=== PATIENT | male | born 1970 | race Caucasian/White ===

== ENCOUNTER 2023-08-05 14:41 | Outpatient (CLI) | payer BC, SELFPAY ==
[2023-08-05 15:31] LABS: Influenza A QL RT-PCR Negative (Negative); Influenza B QL RT-PCR Negative (Negative); SARS-CoV-2 RNA PCR Positive (Negative)
== END 2023-08-05 14:42 | disposition home or self-care (01) ==
LOC: ANHLAB 14:42
PROVIDERS: PCP Family Medicine; Visit Provider Physician Assistant Medical
DX: U07.1 COVID-19 (principal)
CPT/HCPCS: 87636

== ENCOUNTER 2023-09-08 14:54 | Outpatient (CLI) | payer BC, SELFPAY ==
--- NOTE | ~2023-09-08 | US_ITS ---
EXAMINATION: US soft tissue UE RT DATE: 09/08/2023 15:28 INDICATION: Abdominal mass at the right upper extremity TECHNIQUE: Multiple grayscale and Doppler ultrasound images of the region of concern at the anterior mid right upper arm were obtained. COMPARISON: None FINDINGS: There is a 3.2 x 1.4 x 2.2 cm ovoid intramuscular mass at the region of concern. The masses hypoechoi c to the surrounding musculature, relatively isoechoic but with more coarsened echotexture within the superficial subcutaneous fat. IMPRESSION: 1. Nonspecific 3.2 x 1.4 x 2.2 cm intramuscular mass at the region of concern consistent with neoplas m either benign such as intramuscular lipoma, schwannoma or peripheral nerve sheath tumor or malignan t. Recommend further evaluation with pre and postcontrast MRI. Reviewed, dictated and finalized at location A. [employer] IMPRESSION: 1. Nonspecific 3.2 x 1.4 x 2.2 cm intramuscular mass at the region of concern c onsistent with neoplasm either benign such as intramuscular lipoma, schwannoma or peripheral nerve sheath tumor or malignant. Recommend further evaluation wit h pre and postcontrast MRI.
== END 2023-09-08 14:55 | disposition home or self-care (01) ==
LOC: ANHIMG 14:59
PROVIDERS: PCP Physician Assistant Medical; Visit Provider Physician Assistant Medical
DX: R22.31 Localized swelling, mass and lump, right upper limb (principal)
CPT/HCPCS: 76882

== ENCOUNTER 2024-04-12 14:38 | Outpatient (CLI) | payer BC, SELFPAY ==
--- NOTE | ~2024-04-12 | XR_ITS ---
EXAM: XR shoulder LT min 2V DATE: 04/12/2024 14:53 HISTORY: M25.512 - Pain in left shoulder, NKI . COMPARISON: None available. FINDINGS: Normal mineralization. No fracture or dislocation. No lytic or blastic lesion. Mild degene rative changes at the AC joint and glenohumeral joint. Superior humeral head migration. Inferior acro mial osteophytosis and acromial tip enthesopathy which could contribute to osseous outlet compromise. No erosion or periosteal change. Soft tissues within normal limits. 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 Evidence of rotator cuff patholog y including osseous outlet compromise. Reviewed, dictated and finalized at location K. 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 Evidence of rotator cuff pathology including osseous outlet compromise.
--- NOTE | ~2024-04-12 | XR_ITS ---
EXAM: XR shoulder RT min 2V DATE: 04/12/2024 14:53 HISTORY: RT SHOULDER PAIN. HX ROTATOR CUFF REPAIR . COMPARISON: 09/29/2018, images only. FINDINGS: Normal mineralization. No fracture or dislocation. No lytic or blastic lesion. Mild degene rative change at the AC joint and glenohumeral joint. Superior migration of the humeral head. No eros ion or periosteal change. Soft tissues within normal limits. IMPRESSION: Mild polyarticular right shoulder osteoarthritis. Evidence of rotator cuff pathology. Reviewed, dictated and finalized at location K. IMPRESSION: Mild polyarticular right shoulder osteoarthritis. Evidence of rotat or cuff pathology.
== END 2024-04-12 14:39 | disposition home or self-care (01) ==
PROVIDERS: PCP Family Medicine; Visit Provider Physician Assistant
DX: M19.011 Primary osteoarthritis, right shoulder (principal); M19.012 Primary osteoarthritis, left shoulder
CPT/HCPCS: 73030

== ENCOUNTER 2024-04-15 00:35 | Day surgery (SDC) | payer BC, SELFPAY ==
--- NOTE | 2024-04-12 16:24 | SUR.PREOP ---
Report to the Outpatient Waiting Room, entrance under the green pavilion located off [facility], at time 1130 on date 04/15/24. Planned Procedure Time: 1330. Time changes happen often and if your time is changed the preop area will call you the afternoon before. - You and your visitor will be asked to self-screen and do not enter if you have any COVID symptoms. - A mask is optional within the hospital at this time. Patients may have clear liquids (water, carbonated beverages, clear teas, apple juice) until 3 hours prior to surgery with a maximum of 20 ounces. - NO CLEAR LIQUIDS AFTER 1030 - No food from midnight until time of surgery - Infants may have breast milk until 4 hours before surgery, infant formula 6 hours prior to surgery. - Children will be allowed to drink immediately following surgery. If applicable, please bring a bottle or sippy cup to assist with drinking. Juice, water, soda, and popsicles are readily available. For infants on formula, please bring formula the day of surgery. Pacifiers are allowed. Take the following medications with a SIP of water the morning of surgery: N/A DO NOT STOP ANY OF YOUR OTHER PRESCRIPTION MEDICATIONS PRIOR TO SURGERY ?EXCEPT THE FOLLOWING Medications to discontinue per physician N/A Date to take last dose Please no make-up, nail slovenian, hairspray, perfume, deodorant, or body powder the day of surgery. No jewelry (including any body piercings) or valuables the day of surgery, leave them at home. Please take a shower or bath the night before, or the morning of, surgery with an antibacterial soap. Wear comfortable, loose fitting clothing. Children are encouraged to wear pajamas. - Jewelry must be removed prior to entering the operating room. Rings and piercings that are not removed may be cut off. - The hospital will not accept responsibility for valuables. - Please leave all valuables, including medications, at home the day of surgery. If you are going home after surgery, a licensed inventory associate and driver must drive you home. - NO public transportation without another adult if you receive anesthesia. - We recommend that an adult stay with you for 24 hours following discharge. - We also recommend that you do not drive, make important decision, drink alcoholic beverages, or take any drugs that were not prescribed by your health care provider for at least 24 hours after your discharge time. For Pediatric surgeries, we recommend two adults accompany the child home. Follow any additional instructions given to you from your surgeon. If you or anyone in your household have experienced Covid symptoms in the past week, please notify your surgeon or the nurse liaison at the phone number below for possible testing. Telephone instructions given to PAULA PRO and asked if any additional questions and then verbalized understanding. Patient advised to call surgeon office or pre surgery nurse liaison [phone] if any additional questions.
[2024-04-12 16:32] VITALS: BMI 30.4
[2024-04-15] VITALS (8 sets, daily range): BP systolic 103–152; BP diastolic 70–99; PULSE 67–74; RESP 12–20; TEMP 36.4–36.6; O2SAT 97–100
--- NOTE | 2024-04-15 12:21 | WPDHPUPDATE1 ---
History and Physical Update Update Date/Time: 04/15/24 12:21 History and Physical has been reviewed, including an updated exam of the patient. There are NO changes in the patient's condition. Risks, benefits, and alternatives have been discussed and questions answered. Patient agrees to proceed with procedure.
--- NOTE | 2024-04-15 12:42 | WPDANESEPPF ---
Anes - Initial Pre Proc Eval Procedure: Operation Date: 04/15/24 13:30 Proposed Procedures p Excision Right Intramuscular Upper Extremity Mass - James Huff DO Date/Time: 04/15/24 12:42 Surgeon: James Huff DO Pre Op Diagnosis: right upper extremity mass Patient Data Age: 53 Gender: M Height: 1.73 m Weight: 91 kg Allergies Allergy/AdvReac Type Severity Reaction Status Date / Time No Known Allergies Allergy Verified 04/12/24 16:14 Home Medications Medication Instructions Recorded Confirmed Type rosuvastatin 10 mg tablet 10 mg PO DAILY #30 tabs 03/09/24 04/12/24 Rx Patient hx anesthesia problems: none Family hx anesthesia problems: none Results Review: All pre-operative results and documents have been reviewed as part of the pre-operative evaluation. [facility] Past Medical History Medical History Allergic rhinitis HLD (hyperlipidemia) HTN (hypertension) Thrombosed hemorrhoids Surgical History Surgical History S/P rotator cuff repair Family History Family History Other Diabetes mellitus Family history of allergic disorder Family history of arthritis Hypertension Social History Social History Smoking packs per day: 1 Smoking cigarettes per day: 20.0 Years smoked: 30 Smoking pack-years: 30.00 Smoking status: Heavy tobacco smoker Second hand tobacco smoke exposure: No Alcohol intake: current Drinks per week: 20 Substance use: never Substance use type: marijuana Do You Feel Safe in your Home?: Yes Lack of Transportation: No Lack of Food: Never True Current Housing: I Have Housing Concerned About Future Housing: No Difficulty Paying Gas/Electric Bills: No Difficulty Paying for Meds: No Currently Unemployed: No Education: High School Diploma/GED Difficulty w/ Childcare or Family Care: No Occupation/Education: occupation Gender identity (if verbalized by the patient): Male Spiritual care concerns: No Anes - Eval Final PreProcedure Day of Procedure 04/15/24 12:42 Patient weight: obese Heart: regular rate and rhythm Lungs: clear to auscultation Airway: Mallampati scale class II Neurological: alert and oriented Last oral intake: >/= 8 hours ASA classification: III Emergent: no Anesthetic plan: proceed Anesthesia type and monitoring: general GIVS and standard monitoring Results Review: All pre-operative results and documents have been reviewed as part of the pre-operative evaluation. Informed Consent: The patient's anesthetic plan and its attendant risks and benefits were discussed with the patient/family/POA. Questions were solicited and answers provided to the satisfaction of the patient/family/POA.
[2024-04-15] MEDS: LACTATED RINGERS 1,000 ML 30 ML IV CONT ×2 (12:51→13:48)
[2024-04-15] MEDS: ceFAZolin 2 GM/D5W 50 ML 2 GM/50 ML BAG IVPB (13:12)
[2024-04-15] MEDS: LIDO 1%/EPINEPHRINE 1:100,000 20 ML VIAL 50 ML INFILTRATE (13:25)
--- NOTE | 2024-04-15 13:55 | P.OP_ITS ---
Procedure Note - Detailed Date of Procedure 04/15/24 Pre-op Diagnosis right upper extremity intramuscular mass Post-op Diagnosis Same Procedure Performed Excision of 4cm right upper extremity intramuscular mass Surgeon James Huff, DO Anesthesia MAC and Local (1% Lidocaine with epinephrine) Indications this is a 53-year-old man who presented with a painful bulge in his right biceps region. He had noticed this for several months but it was becoming increasingly uncomfortable. An ultrasound and MRI were obtained which confirmed findings that appeared suspicious for a lipoma within the muscle on the right biceps. Discussions were made with the patient about treatment options and decision was made to proceed with excision of 4 cm right upper extremity intramuscular mass. Findings The intramuscular mass was identified and excised completely. This appeared likely to be a lipoma within the biceps muscle on the right upper extremity. I incised through the fascia overlying the anterior surface of the biceps and carefully isolated the mass and excised it from the intramuscular attachments. The mass was sent to the lab for pathology. Description of Procedure Procedure as well as risks, benefits, and alternatives were discussed with the patient. Written consent was obtained and placed in chart prior to procedure. Patient was brought back to surgical suite. He was placed supine on operating table. Time-out was done to confirm patient and procedure. He was then placed under IV anesthesia by the anesthesia department. His right upper extremity was prepped and draped in sterile fashion using chlorhexidine prep. 1% lidocaine with epinephrine was infiltrated locally over the mass. A 4 cm transverse incision was made directly over the mass using a 15 blade scalpel. Electrocaut edwardo was used for hemostasis and for dissection through the subcutaneous tissue. The fascia overlying the biceps muscle was identified and incised vertically along the muscle fibers using electrocautery. The muscle fibers were then gently split using a curved hemostat and the intramuscular mass was identified. The intramuscular attachments around the mass were carefully dissected free using blunt dissection electrocautery. Once the mass was completely excised it was removed and sent to the lab for pathology. The wound bed was then inspected hemostasis appeared adequate no other abnormalities were noted. The fascia over the muscle was then reapproximated using 3-0 Vicryl simple interrupted sutures. The deep dermis was approximated using 3-0 Vicryl inverted interrupted sutures. The skin was then approximated using 4-0 Monocryl running subcuticular suture. Exofin glue was then applied on top. The patient was then awakened from anesthesia and transferred to recovery. Estimated Blood Loss 5 Pathology Yes ( 4 cm intramuscular right upper extremity mass) Complications No immediate complications Condition Stable Disposition Same day [facility] Billing Surgery - Charge Forward: Surgery Billing
== END 2024-04-15 15:14 | disposition home or self-care (01) ==
PROVIDERS: PCP Family Medicine; Visit Provider Surgery
PROC: (CPT 24076; principal; 2024-04-15 13:30)
DX: D17.21 Benign lipomatous neoplasm of skin and subcutaneous tissue of right arm (principal); I10 Essential (primary) hypertension; E78.5 Hyperlipidemia, unspecified; F17.210 Nicotine dependence, cigarettes, uncomplicated; E66.9 Obesity, unspecified; Z68.29 Body mass index [BMI] 29.0-29.9, adult
CPT/HCPCS: 24076; 88304; A9270; J0690; J1100; J2250; J2371; J2405; J2704; J3010; J7120

== ENCOUNTER 2024-04-25 08:16 | Outpatient (CLI) | payer BC, SELFPAY ==
--- NOTE | ~2024-04-25 | CT_ITS ---
EXAMINATION: CT lung screening DATE: 04/25/2024 08:33 INDICATION: F17.210 - Nicotine dependence, cigarettes, uncomplicated TECHNIQUE: Computed tomography (CT) of the chest was performed without intravenous contrast. Addition al 3D reconstructions utilizing coronal maximum intensity projection (MIP) were performed. Automated exposure control and iterative reconstruction technique were employed. The dose-length product was 21 2.27 mGy-cm. COMPARISON: None FINDINGS: There are a few small nodules along the bilateral major fissures likely representing intrafissural ly mph nodes, the largest measuring 4 mm along the right major fissure. No other pulmonary nodules, pneu monia, pulmonary edema or pleural effusion. Heart size is normal. Atherosclerotic coronary artery angeline cifications. No pericardial effusion. Thoracic aorta is normal in caliber. No pathologically enlarged thoracic lymphadenopathy. Diffuse hepatic steatosis. Mild likely physiologic anterior wedging at T12 . IMPRESSION: 1. Lung-RADS category 2: Benign appearance or behavior. Continue annual screening with noncontrast lo w-dose chest CT in 12 months. Reviewed, dictated and finalized at location A. IMPRESSION: 1. Lung-RADS category 2: Benign appearance or behavior. Continue annual screeni ng with noncontrast low-dose chest CT in 12 months.
== END 2024-04-25 08:17 ==
LOC: MICIMG 08:17
PROVIDERS: PCP Family Medicine; Visit Provider Physician Assistant
DX: Z12.2 Encounter for screening for malignant neoplasm of respiratory organs (principal); F17.210 Nicotine dependence, cigarettes, uncomplicated
CPT/HCPCS: 71271

== ENCOUNTER 2024-08-17 01:27 | Day surgery (SDC) | payer BC, SELFPAY ==
[2024-08-08 15:25] VITALS: BMI 30.4
[2024-08-17 08:06] VITALS: BP 140/99; PULSE 76; RESP 16; TEMP 36.3; O2SAT 98
[2024-08-17] MEDS: LACTATED RINGERS 1,000 ML 150 ML IV CONT (08:15)
--- NOTE | 2024-08-17 08:48 | P.PNAN_ITS ---
Anes - Initial Pre Proc Eval Procedure: Operation Date: 08/17/24 09:30 Proposed Procedures p Screening Colonoscopy - Ronnie Salas MD Date/Time: 08/17/24 08:48 Surgeon: Ronnie Salas MD Pre Op Diagnosis: Neoplasm screening Patient Data Age: 54 Gender: M Height: 1.73 m Weight: 91.5 kg Last Vital Signs Temp 36.3 C L 08/17/24 08:06 Pulse 76 08/17/24 08:06 Resp 16 08/17/24 08:06 BP 140/99 H 08/17/24 08:06 Pulse Ox 98 08/17/24 08:06 O2 Del Method Room Air 08/17/24 08:06 Allergies Allergy/AdvReac Type Severity Reaction Status Date / Time No Known Allergies Allergy Verified 08/17/24 08:04 Home Medications ?Medication ?Instructions ?Recorded ?Confirmed ?Type ibuprofen 800 mg tablet 800 mg PO Q8H PRN pain #10 tabs 04/15/24 08/08/24 Rx rosuvastatin 10 mg tablet 10 mg PO DAILY #90 tabs 06/19/24 08/17/24 Rx Patient hx anesthesia problems: none Family hx anesthesia problems: none Results Review: All pre-operative results and documents have been reviewed as part of the pre- operative evaluation. [facility] Past Medical History Medical History Allergic rhinitis Thrombosed hemorrhoids HLD (hyperlipidemia) HTN (hypertension) Surgical History Surgical History S/P rotator cuff repair Family History Family History Other Diabetes mellitus Family history of allergic disorder Family history of arthritis Hypertension Social History Social History Smoking packs per day: 1 Smoking cigarettes per day: 20.0 Years smoked: 30 Smoking pack-years: 30.00 Smoking status: Heavy tobacco smoker Second hand tobacco smoke exposure: No Alcohol intake: current Drinks per week: 20 Substance use: never Substance use type: marijuana Do You Feel Safe in your Home?: Yes Lack of Transportation: No Lack of Food: Never True Current Housing: I Have Housing Concerned About Future Housing: No Difficulty Paying Gas/Electric Bills: No Difficulty Paying for Meds: No Currently Unemployed: No Education: High School Diploma/GED Difficulty w/ Childcare or Family Care: No Occupation/Education: occupation Gender identity (if verbalized by the patient): Male Spiritual care concerns: No Anes - Eval Final PreProcedure Day of Procedure 08/17/24 08:48 Patient weight: obese Heart: regular rate and rhythm Lungs: decreased breath sounds Airway: Mallampati scale class II Neurological: alert and oriented Last oral intake: >/= 8 hours ASA classification: III Emergent: no Anesthetic plan: proceed Anesthesia type and monitoring: general GIVS and standard monitoring Results Review: All pre-operative results and documents have been reviewed as part of the pre- operative evaluation. Informed Consent: The patient's anesthetic plan and its attendant risks and benefits were discussed with the patient/family/POA. Questions were solicited and answers provided to the satisfaction of the patient/family/POA.
--- NOTE | 2024-08-17 08:56 | PM.HPGS ---
History of Present Illness History of Present Illness Consent: Risks, benefits, and alternatives have been discussed and questions answered. Patient agrees to proceed with procedure. Chief complaint: Neoplasm screening Narrative: Santana Ayon is a 54 year old male here for first screening colonoscopy Review of Systems Review of Systems: All systems reviewed & are unremarkable except as noted in HPI and below PMFSH Past Medical History Medical History (Updated 08/17/24 @ 08:56 by Ronnie Salas MD) Colon cancer screening Allergic rhinitis Thrombosed hemorrhoids HLD (hyperlipidemia) HTN (hypertension) Surgical History Surgical History S/P rotator cuff repair Family History Family History Other Diabetes mellitus Family history of allergic disorder Family history of arthritis Hypertension Social History Social History Smoking packs per day: 1 Smoking cigarettes per day: 20.0 Years smoked: 30 Smoking pack-years: 30.00 Smoking status: Heavy tobacco smoker Second hand tobacco smoke exposure: No Alcohol intake: current Drinks per week: 20 Substance use: never Substance use type: marijuana Do You Feel Safe in your Home?: Yes Lack of Transportation: No Lack of Food: Never True Current Housing: I Have Housing Concerned About Future Housing: No Difficulty Paying Gas/Electric Bills: No Difficulty Paying for Meds: No Currently Unemployed: No Education: High School Diploma/GED Difficulty w/ Childcare or Family Care: No Occupation/Education: occupation Gender identity (if verbalized by the patient): Male Spiritual care concerns: No Meds Home Medications and Allergies Home Medications ?Medication ?Instructions ?Recorded ?Confirmed ?Type ibuprofen 800 mg tablet 800 mg PO Q8H PRN pain #10 tabs 04/15/24 08/08/24 Rx rosuvastatin 10 mg tablet 10 mg PO DAILY #90 tabs 06/19/24 08/17/24 Rx Allergies Allergy/AdvReac Type Severity Reaction Status Date / Time No Known Allergies Allergy Verified 08/17/24 08:04 Vital Signs Vital Signs - 24 hr 08/17/24 08:06 Temperature 97.3 F L Pulse Rate 76 Respiratory Rate 16 Blood Pressure 140/99 H Pulse Oximetry 98 Oxygen Delivery Room Air Exam Const: General: comfortable and no acute distress HENMT: Face/Nose/Sinus: Normal nares present Eyes: General: appearance normal, both eyes and all related structures Neck: Neck: no JVD Resp: Auscultation: clear to auscultation bilaterally Cardio: Rate: regular rate Rhythm: regular rhythm GI: Inspection: non-distended GI Palp: Yes Soft to palpation Skin: General skin exam: normal color Neuro: General: gait normal Speech: normal speech Extrem: General: normal to inspection Psych: Mental Status: mental status grossly normal Assessment and Plan Assessment and plan (1) Colon cancer screening: Code(s): Z12.11 - Encounter for screening for malignant neoplasm of colon Status: Acute Assessment and Plan: colonoscopy
[2024-08-17 09:18] VITALS: BP 115/73; PULSE 75; RESP 26; O2SAT 91
[2024-08-17 09:28] VITALS: BP 118/78; PULSE 78; RESP 20; O2SAT 96
[2024-08-17 09:38] VITALS: BP 138/97; PULSE 78; RESP 20; O2SAT 97
== END 2024-08-17 09:46 | disposition home or self-care (01) ==
PROVIDERS: PCP Family Medicine; Referring Provider Physician Assistant; Visit Provider Internal Medicine Gastroenterology
PROC: 0DJD8ZZ Inspection of Lower Intestinal Tract, Via Natural or Artificial Opening Endoscopic (ICD-10-PCS; CPT 45378; principal; 2024-08-17 09:30)
DX: Z12.11 Encounter for screening for malignant neoplasm of colon (principal); D12.5 Benign neoplasm of sigmoid colon; K64.8 Other hemorrhoids; E78.5 Hyperlipidemia, unspecified; I10 Essential (primary) hypertension; F17.210 Nicotine dependence, cigarettes, uncomplicated; F12.90 Cannabis use, unspecified, uncomplicated; E66.9 Obesity, unspecified; Z68.30 Body mass index [BMI] 30.0-30.9, adult; Z79.1 Long term (current) use of non-steroidal anti-inflammatories (NSAID); Z98.890 Other specified postprocedural states
CPT/HCPCS: 45385; 88305; J2003; J2704; J7120